=== PATIENT | male | born 1995 | race Caucasian/White ===

== ENCOUNTER 2021-09-06 11:28 | Emergency (ER) | payer SELFPAY ==
[2021-09-06 11:32] VITALS: BP 150/82; PULSE 92; RESP 18; TEMP 36; O2SAT 99
--- NOTE | 2021-09-06 11:51 | ED.GENADUL_ITS ---
Discharge Plan Disposition Patient Disposition: HOME Condition: Stable Discharge Details Clinical Impression: Laceration of forearm, left Primary Care Provider: None,None ED Provider: Debi Anderson Home Meds and New Rx's Prescriptions: New cephalexin 500 mg capsule 500 mg PO BID Qty: 10 0RF Discharge Instructions Instructions: Laceration (ED) Additional Instructions: Please keep your wound clean, dry, covered. Monitor for signs of infection including redness, warmth, drainage, increased pain, fever/chills. If youdevelop these or any other new/worsening symptoms please seek care urgently once again. Tell prevent infection, please take antibiotics as prescribed. Tetanus is updated at urgent care today. Please return in 10 days for suture removal. Tylenol and/or ibuprofen as needed for discomfort. Referral for primary care has been sent. Discharge Data Discharge Date/Time-TO BE ENTERED AT DEPARTURE: 09/06/21 13:13 Medical Decision Making <Debi Anderson MD - Last Filed: 09/08/21 10:15> Jakub Cornejo is a 26-year-old man without reported history of medical problems presenting to emergency department laceration. Patient reports that at approximately 10:30 PM last night he tripped and fell, cutting his left forearm on a radiator. Patient reports that he did not hit his head, denies any other injuries other than laceration to left forearm. Patient states that he does not like coming to hospital, and the waiting to be seen for this injury until just prior to arrival when he presented to urgent care. Urgent care sent patient here for treatment based on size of laceration. Patient states that he received tetanus booster at urgent care today. He denies any other pain beyond pain at site of laceration, fever, cough, shortness of breath, vomiting, diarrhea, weakness. Patient reports a tingling sensation in his anterior forearm distal to the laceration and also in the palmar aspect of digits 2 through 5. He denies any weakness in his left wrist or left digits. States that he was previously well in his usual state of health. On examination there is a 4 cm laceration without apparent involvement of deep structures. Normal motor and sensory exam of the left forearm and hand. Concern for increased risk of infection given time from initial laceration, which I did discuss with patient. Plan for laceration repair. Exam/history at this time is not consistent with bony involvement, muscle/tendon involvement, active infection, nerve laceration. Care transferred to DESIREE Valle prior to treatment of laceration. <DESIREE Valle - Last Filed: 09/06/21 19:43> Jakub Cornejo is a 26-year-old man without reported history of medical problems presenting to emergency department laceration. Patient reports that at approximately 10:30 PM last night he tripped and fell, cutting his left forearm on a radiator. Patient reports that he did not hit his head, denies any other injuries other than laceration to left forearm. Patient states that he does not like coming to hospital, and the waiting to be seen for this injury until just prior to arrival when he presented to urgent care. Urgent care sent patient here for treatment based on size of laceration. Patient states that he received tetanus booster at urgent care today. He denies any other pain beyond pain at site of laceration, fever, cough, shortness of breath, vomiting, diarrhea, weakness. Patient reports a tingling sensation in his anterior forearm distal to the laceration and also in the palmar aspect of digits 2 through 5. He denies any weakness in his left wrist or left digits. States that he was prev iously well in his usual state of health. On examination there is a 4 cm laceration without apparent involvement of deep structures. Normal motor and sensory exam of the left forearm and hand. Conc venice for increased risk of infection given time from initial laceration, which I did discuss with patient. Plan for laceration repair. Exam/history at this time is not consistent with bony involvement, muscle/tendon involvement, active infection, nerve laceration. Care transferred to DESIREE Valle prior to treatment of laceration. Patient is myself from Judith Anderson MD. Please see her initial note regarding history, presentation and exam. In brief, patient is a pleasant [id number] 26-year-old male presenting today with chief complaint of left forearm laceration. Laceration was sustained last night when he fell on a radiator tripping over a cat. No other injuries from the incident. Patient and I discussed risks/ benefits of suture closure. He voices understanding and wishes to proceed. Please see procedure note. He tolerated this well. Wound was copiously irrigated, explored to base in a bloodless field with no FB or debrins noted. He had fascial defect which was able to be repaired with Vicryl. He tolerated closure well. Will start on abx as the patient has been >12 hours since wound and he describes the initial wound as being dirty. Wound was cleansed at urgent car e as well as here. Tetanus was updated at Urgent care today. He does not have a local PCP, will as care management to ensure f/u. Return precautions discussed, in particular signs of infeciton. Discussed wound care in depth. 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 He will return in 10 days for suture removal. All of his questions and concerns were addressed, he is in agreement gregoria dee. HPI <Debi Anderson MD - Last Filed: 09/08/21 10:15> General Date/Time Provider Initiated Documentation: 09/06/21 11:44 . HPI Narrative: Jakub Cornejo is a 26-year-old man without reported history of medical problems presenting to emergency department laceration. Patient reports that at approximately 10:30 PM last night he tripped and fell, cutting his left forearm on a radiator. Patient reports that he did not hit his head, denies any other injuries other than laceration to left forearm. Patient states that he does not like coming to hospital, and the waiting to be seen for this injury until just prior to arrival when he presented to urgent care. Urgent care sent patient here for treatment based on size of laceration. Patient states that he received tetanus booster at urgent care today. He denies any other pain beyond pain at site of laceration, fever, cough, shortness of breath, vomiting, diarrhea, weakness. Patient reports a tingling sensation in his anterior forearm distal to the laceration and also in the palmar aspect of digits 2 through 5. He denies any weakness in his left wrist or left digits. States that he was previously well in his usual state of health. Related Data Home Medications Medication Instructions Recorded Confirmed cephalexin 500 mg capsule 500 mg PO BID #10 cap 09/06/21 Previous Rx's Medication Instructions Recorded cephalexin 500 mg capsule 500 mg PO BID #10 cap 09/06/21 Allergies Allergy/AdvReac Type Severity Reaction Status Date / Time No Known Allergies Allergy Verified 09/06/21 11:39 General Stated Complaint: Laceration SUMIT: 3 Review of Systems <Debi Anderson MD - Last Filed: 09/08/21 10:15> Narrative: Constitutional: denies fevers Eyes: denies eye pain ENT: denies ear pain, dental pain, sore throat Cardiovascular: denies chest pain Respiratory: denies SOB, cough GI: denies abdominal pain, vomiting, diarrhea : denies flank pain MSK: denies back pain, neck pain, arthralgias, myalgias Skin: denies rash Neuro: denies headaches, numbness, weakness, reports tingling sensation in left forearm and left digits 2 through 5 as per HPI PFSH <Debi Anderson MD - Last Filed: 09/08/21 10:15> All Active Problems Laceration of forearm, left (Acute) Social History Smoking/Tobacco Use Status: Current every day Tobacco Type: cigarettes Smoking risk assessment performed?: Yes Drug use: Occasionally Substance use type: marijuana Do you feel safe at home: Yes Do you feel safe in your relationship?: Yes Exam <Debi Anderson MD - Last Filed: 09/08/21 10:15> Narrative Exam Narrative: Constitutional: well and [id number], pleasant, conversing normally HENT: head atraumatic/normocephalic/normal inspection, mucous membranes moist Eyes: conjunctiva normal, sclera normal, pupils 3mm b/l Neck: no stridor, normal ROM, trachea midline Resp: normal work of breathing, speaking in full sentences Cardio: normal rate, normal rhythm Skin: warm, dry, normal color, no rash Neuro: alert, not altered, grossly non-focal, normal tone Ext: no edema, left proximal anterior forearm with 4 cm linear laceration, no bleeding, some muscle exposed without apparent laceration to deep structures, laceration does not cross the elbow joint, full painless range of motion of the left elbow, full painless range of motion of the left wrist and digits with normal motor exam of the left wrist and digits. Sensation intact left anterior forearm, hand, and digits. Psych: normal mood, normal affect, normal behavior Course <Debi Anderson MD - Last Filed: 09/08/21 10:15> Vital Signs Vital signs: Vital Signs Temperature 36 C L 09/06/21 11:32 Pulse 92 H 09/06/21 11:32 Respiratory Rate 18 09/06/21 11:32 Blood Pressure 150/82 H 09/06/21 11:32 Pulse Oximetry 99 09/06/21 11:32 Temperature 36 C L 09/06/21 11:32 Temperature Source Temporal Artery Scan 09/06/21 11:32 Pulse 92 H 09/06/21 11:32 Respiratory Rate 18 09/06/21 11:32 Respiratory Effort Non-Labored 09/06/21 11:36 Blood Pressure 150/82 H 09/06/21 11:32 Blood Pressure Position Sitting 09/06/21 11:32 Pulse Oximetry 99 09/06/21 11:32 Oxygen Delivery Method Room Air 09/06/21 11:32 Oxygen Flow Rate 0 09/06/21 11:32 <DESIREE Valle - Last Filed: 09/06/21 19:43> Laceration Laceration 1: Site: upper extremity Side (If applicable): left Size (cm): 7 Description: linear Depth: involves muscle layer (through fascia, muscle appears intact) Local Anesthetic: Lidocaine 1% and with Bicarb Amount of anesthesia used (mL): 12 Pre-repair: wound explored and irrigated extensively Skin layer closed with: nylon Size (cm): 3-0 Number of sutures: 6 Technique: simple, interrupted Subcutaneous layer closed with: vicryl Size: 4-0 Number of sutures: 4 Technique: simple, interrupted PAWSS <Debi Anderson MD - Last Filed: 09/08/21 10:15> Have you Been Recently Intoxicated or Drunk Within the Last 30 days?: Yes Have you Ever Experienced Previous Episodes of Alcohol Withdrawal?: No Have you ever Experienced Withdrawal Seizures?: No Have you ever Experienced Delirium Tremens(DT)s?: No Have you ever undergone Alcohol Rehabilitation Treatment (i.e, inpt ot outpatient treatment programs)?: No Have you ever Experienced Blackouts?: Yes Have you ever Combined Alcohol with other Downers within the last 90 days?: No Have you ever Combined Alcohol with any other Substance of Abuse during the last 90 days?: No Positive Blood Alcohol level on Presentation? [PCS.BAL]: No Evidence of Increased Autonomic Activity (i.e. HR>120, tremor, sweating, agitation, nausea)?: No Result: 2 <DESIREE Valle - Last Filed: 09/06/21 19:43> Result: 2
[2021-09-06 13:09] VITALS: BP 150/82; PULSE 92; RESP 18; TEMP 36; O2SAT 99
--- NOTE | 2021-09-06 13:16 | NUR.NOTE ---
Nursing Note: Referral given to Care Management to establish care, routine follow up; needs a PCP. Judith Romero
--- NOTE | 2021-09-06 18:22 | NUR.NOTE ---
I reviewed and agree with Harris Jimenez's assessment, treatment and documentation
== END 2021-09-06 13:13 | disposition home or self-care (01) ==
PROVIDERS: Emergency Provider Student in an Organized Health Care Education/Training Program
DX: S51.812A Laceration without foreign body of left forearm, initial encounter (principal); W18.39XA Other fall on same level, initial encounter
CPT/HCPCS: 12002

== ENCOUNTER 2021-09-17 14:01 | Emergency (ER) | payer SELFPAY ==
[2021-09-17 14:09] VITALS: BP 131/75; PULSE 78; RESP 16; TEMP 36.4; O2SAT 99
--- NOTE | 2021-09-17 14:30 | ED.GENADUL_ITS ---
Discharge Plan Disposition Patient Disposition: HOME Condition: Stable Discharge Details Clinical Impression: Laceration of forearm, left Primary Care Provider: None,None ED Provider: Anya Cisneros Home Meds and New Rx's Prescriptions: No Action cephalexin 500 mg capsule 500 mg PO BID Qty: 10 0RF Discharge Instructions Instructions: Laceration (ED) Additional Instructions: Continue to keep wound clean and dry wash with warm water and soap once a day and return earlier should you have new or worsening complaints including redness, swelling, discharge from Discharge Data Discharge Date/Time-TO BE ENTERED AT DEPARTURE: 09/17/21 14:50 Medical Decision Making Sutures removed by me #6 Return precautions discussed and patient expressed understanding HPI General Date/Time Provider Initiated Documentation: 09/17/21 14:16 . HPI Narrative: Patient presents for report of arm laceration. She denies any complaints. He does have slight paresthesia which is persistent but not worsening to the left lateral aspect of his arm. He denies any hand or finger involvement. He denies any fever or chills. Tetanus is up-to-date. Related Data Home Medications Medication Instructions Recorded Confirmed cephalexin 500 mg capsule 500 mg PO BID #10 cap 09/06/21 Previous Rx's Medication Instructions Recorded cephalexin 500 mg capsule 500 mg PO BID #10 cap 09/06/21 Allergies Allergy/AdvReac Type Severity Reaction Status Date / Time No Known Allergies Allergy Verified 09/17/21 14:12 General Stated Complaint: SutureRem SUMIT: 5 Review of Systems Narrative: ROS obtained x3 and negative aside from indication in HPI PFSH All Active Problems (Updated 09/17/21 @ 14:33 by DESIREE Canela) Laceration of forearm, left (Acute) Social History Smoking/Tobacco Use Status: Current every day Tobacco Type: cigarettes Smoking risk assessment performed?: Yes Drug use: Occasionally Substance use type: marijuana Do you feel safe at home: Yes Do you feel safe in your relationship?: Yes Exam Extrem Other: Left upper extremity with well-healed and approximated laceration, no dehiscence or surrounding erythema Course Vital Signs Vital signs: Vital Signs Temperature 36.4 C L 09/17/21 14:09 Pulse 78 09/17/21 14:09 Respiratory Rate 16 09/17/21 14:09 Blood Pressure 131/75 09/17/21 14:09 Pulse Oximetry 99 09/17/21 14:09 Temperature 36.4 C L 09/17/21 14:09 Temperature Source Temporal Artery Scan 09/17/21 14:09 Pulse 78 09/17/21 14:09 Respiratory Rate 16 09/17/21 14:09 Respiratory Effort Non-Labored 09/17/21 14:13 Blood Pressure 131/75 09/17/21 14:09 Blood Pressure Position Sitting 09/17/21 14:09 Pulse Oximetry 99 09/17/21 14:09 Pain Level 2 09/17/21 14:09
== END 2021-09-17 14:50 | disposition home or self-care (01) ==
PROVIDERS: Emergency Provider Physician Assistant
DX: S51.812D Laceration without foreign body of left forearm, subsequent encounter (principal); X58.XXXD Exposure to other specified factors, subsequent encounter; Z48.02 Encounter for removal of sutures